=== PATIENT | male | born 1965 | race African-American/Black ===

== ENCOUNTER 2016-12-09 14:53 | Inpatient (IN) | payer SELFPAY ==
[2016-12-09] MEDS ORDERED: TORADOL 15 MG VIAL IVP PRN (16:04)
[2016-12-09] MEDS ORDERED: VANCOMYCIN HCL 1 GM VIAL IV SCH (17:00)
--- NOTE | 2016-12-09 17:50 | DR.H&P ---
H&P - History & Physical for Day of: H&P Date: 12/09/16 - Chief Complaint Chief Complaint: RIGHT ARM PAIN AND SWELLING - Allergies Allergies/Adverse Reactions: Allergies Allergy/AdvReac Type Severity Reaction Status Date / Time No Known Drug Allergy Allergy Verified 12/09/16 17:10 - History of Present Illness History of Present Illness: [address] FLOWER OFFICE AFTER PRESENTING WITH CO RIGHT UPPER EXTREMIY SWELLING AND PAIN. PT WAS TREATED ONE WEEK AGO WITH PO BACTRIM, INDOMETHICIN AND MEDROL DOSE CRISELDA WITHOUT IMPROVEMENT. PT HAS DIFFUSE SWELLING TO RIGHT ELBOW DOWN TO RIGHT HAND. PT DENIES ANY INSECT BITES OR INJURY. PLAN TO ADMIT, START IV ATBX, OBTAIN LABS AND ORTHO CONSULT - Past Medical History Past Medical History: Arthritis - Family History Family Medical History: Diabetes Mellitus, Hypertension - Social History Alcohol Use: None Drug Use: None - Medications Home Medications: NK [NK] 12/09/16 [History Confirmed 12/09/16] - Review of Systems Constitutional: No Symptoms Reported Eyes: No Symptoms Reported ENT: No Symptoms Reported Respiratory: No Symptoms Reported Cardiovascular: No Symptoms Reported Gastrointestinal: No Symptoms Reported Genitourinary: No Symptoms Reported Musculoskeletal: Arm Pain Skin: Other (REDNESS TO RUE) Neurological: Weakness (RIGHT HAND) - Physical Exam Vital Signs: Temperature 97.7 F Pulse Rate [Left Brachial] 73 Respiratory Rate 18 Blood Pressure [Left Arm] 167/93 O2 Sat by Pulse Oximetry 100 Oriented: Normal Eyes: Normal Ear: Normal Nose: Normal Throat: Normal Respiratory: Clear Throughout Cardiovascular: Normal : Normal Auscultation: Bowel Sounds: Normal Palpation: Normal Tenderness: Normal Skin: Red, Tender, Hot (RIGHT UPPER EXTREMITY) Musculoskeletal: Right, Elbow, Forearm, Wrist, Hand Speech Pattern: Clear, Appropriate - Assessment/Plan (1) Right upper limb pain Status: Acute Plan: ADMIT, ADMISSION LABS. CBC CMP BLOOD CULTURES. IV ATBX, US RUE, XRAY LEFT ELBOW. PAIN CONTROL, CONSULT ORTHO (2) Right arm cellulitis Status: Acute (3) Swelling of right upper extremity Status: Acute
[2016-12-09] MEDS ORDERED: NORVASC TAB 5 MG PO ONE (17:54)
[2016-12-09] MEDS ORDERED: AMBIEN PO PRN (17:54)
[2016-12-09 18:51] VITALS: BMI 31.7
[2016-12-09 19:38] LABS: BASOPHILS # (AUTO) 0.1 X10^3/uL (0.0-0.1); BASOPHILS % (AUTO) 0.9 % (0.2-1.0); EOSINOPHILS # (AUTO) 0.4 x10^3/uL (0.0-0.2); EOSINOPHILS % (AUTO) 2.2 % (0.9-2.9); HEMATOCRIT 39.2 % (42.0-54.0); HEMOGLOBIN 12.9 g/dL (13.5-18.0); LYMPHOCYTES # (AUTO) 2.3 X10^3/uL (1.3-2.9); LYMPHOCYTES % (AUTO) 14.3 % (21.0-51.0); MEAN CORPUSCULAR HEMOGLOBIN 29.4 pg (27.0-34.0); MEAN PLATELET VOLUME 10.4 fL (7.4-11.0); MONOCYTES # (AUTO) 1.1 x10^3/uL (0.3-0.8); MONOCYTES % (AUTO) 7.1 % (0.0-13.0); NEUTROPHILS # (AUTO) 12.3 x10^3/uL (2.2-4.8); NEUTROPHILS % (AUTO) 75.5 % (42.0-75.0); PLATELET COUNT 296 X10^3/uL (150.0-450.0); RED BLOOD COUNT 4.41 X10^6/uL (4.7-6.0); RED CELL DISTRIBUTION WIDTH 13.2 % (11.6-16.5); WHITE BLOOD COUNT 16.2 X10^3/uL (3.6-10.0)
[2016-12-09 19:52] LABS: ALANINE AMINOTRANSFERASE 25 Units/L (12-78); ALBUMIN 3.2 g/dL (3.4-5.0); ALKALINE PHOSPHATASE 92 Units/L (46-116); ASPARTATE AMINO TRANSFERASE 10 Units/L (15-37); BLOOD UREA NITROGEN 22 mg/dL (7-18); CARBON DIOXIDE 29.5 mmol/L (21-32); CHLORIDE 103 mmol/L (98-107); COR CA(FOR HYPOALB) 9.6 mg/dL (8.5-10.1); COR NA(FOR HYPERGLY) 141 mmol/L (136-145); CREATININE 1.26 mg/dL (0.70-1.30); GLUCOSE 116 mg/dL (65-99); SODIUM 141 mmol/L (136-145); TOTAL PROTEIN 8.3 g/dL (6.4-8.2); URIC ACID 5.9 mg/dL (3.5-7.2); eGFR BLACK RACES > 60 (>60); eGFR NON BLACK RACES > 60 (>60)
--- NOTE | 2016-12-09 20:18 | VAS ---
HISTORY: Extremity pain, swelling, and edema Study: Right upper extremity Doppler venous ultrasound. Comparison: none. TECHNIQUE: Multiple gomez scale and color flow Doppler images of the deep venous system were obtaine d of the upper extremity. FINDINGS: The deep venous system of the right upper extremity evaluated from the level of the internal jugular vein through the radial and ulnar veins. Normal color flow and augmentation can be observed. In a ddition, normal compression is seen throughout the upper extremity deep venous system. No soft tissu e hematoma is seen. IMPRESSION: 1. Negative examination for DVT. Reported By:
[2016-12-09 20:23] LABS: ERYTHROCYTE SEDIMENTATION RATE 70 MM/HOUR (0-15)
[2016-12-09] MEDS ORDERED: VANCOMYCIN HCL 500 MG VIAL 500 MG, VANCOMYCIN HCL 1 GM VIAL 1 GM in NS 250 ML IV 250 ML IV SCH (22:00)
[2016-12-09] MEDS ORDERED: VANCOMYCIN HCL 500 MG VIAL ONE (22:21)
[2016-12-09] MEDS ORDERED: VANCOMYCIN HCL 1 GM VIAL ONE (22:22)
[2016-12-09] MEDS ORDERED: NS 500 ML IV 500 ML IV ONE (22:23)
[2016-12-09] MEDS ORDERED: NS 250 ML IV 250 ML IV ONE (22:23)
[2016-12-09] MEDS: VANCOMYCIN HCL 500 MG VIAL 250 MG, VANCOMYCIN HCL 1 GM VIAL 1 GM in D5W 250 ML IV 250 ML IV SCH (22:39)
[2016-12-09] MEDS: NORCO 10/325 TAB PO PRN (22:44)
--- NOTE | 2016-12-10 04:26 | RAD ---
Right elbow, three views Indication: Right arm edema Findings: A true lateral view was not obtained. There is moderate diffuse joint space loss and bony irregularity of the elbow, in keeping with degenerative disease, possibly posttraumatic in etiology. No definite acute fracture or subluxation identified. There is soft tissue swelling about the elbow . No large joint effusion appreciated. 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 No definite acute skeletal abnormality ident ified. Diffuse soft tissue swelling about the elbow. Reported By:
[2016-12-10] MEDS ORDERED: VANCOMYCIN HCL 1 GM VIAL ONE ×2 (15:29→21:36)
[2016-12-10] MEDS ORDERED: VANCOMYCIN HCL 500 MG VIAL ONE ×2 (15:29→21:37)
[2016-12-10] MEDS ORDERED: D5W 250 ML IV 250 ML IV ONE ×2 (15:30→21:37)
--- NOTE | 2016-12-10 15:31 | PCM.PROG ---
Progress Note - Progress Note for Day of Date: 12/10/16 - Subjective Subjective: RIGHT ARM PAIN AND SWELLING. PT IS 51 BM ADMITTED ONE DAY AGO WITH RIGHT UPPER EXTREMITY CELLULITIS AND CURRENTLY ON VANCOMYCIN, CONSULTED DR BIANCHI - Past Medical Family Social History Past Med/Fam/Surg Hx: No changes since H&P Allergies: Allergies Shrimp Flavor Allergy (Verified 12/09/16 18:28) ANAPHALEXIS REACTION - Review of Systems ROS: No change since H&P - Vital Signs and I&O's Vital Signs: Temperature 98.1 F Pulse Rate [Left Brachial] 77 Respiratory Rate 18 Blood Pressure [Left Arm] 164/87 O2 Sat by Pulse Oximetry 96 Intake and Output: Intake & Output 12/08/16 12/09/16 12/10/16 12/11/16 11:59 11:59 11:59 11:59 Intake Total 960 360 Balance 960 360 - Physical Exam Oriented: Normal Eyes: Normal Ear: Normal Nose: Normal Throat: Normal Cardiovascular: Normal : Normal Auscultation: Bowel Sounds: Normal Tenderness: Normal Skin: Red, Tender, Hot (RIGHT UPPER EXTREMITY) Musculoskeletal: Right, Elbow, Forearm, Wrist, Hand Speech Pattern: Clear, Appropriate - Laboratory and Diagnostics Result Diagrams: 12/09/16 19:00 12/09/16 19:00 Labs: Laboratory WBC 16.2 X10^3/uL (3.6-10.0) H 12/09/16 19:00 RBC 4.41 X10^6/uL (4.7-6.0) L 12/09/16 19:00 Hgb 12.9 g/dL (13.5-18.0) L 12/09/16 19:00 Hct 39.2 % (42.0-54.0) L 12/09/16 19:00 MCV 89.0 fL (80.0-100.0) 12/09/16 19:00 MCH 29.4 pg (27.0-34.0) 12/09/16 19:00 MCHC 33.0 g/dL (33.0-35.0) 12/09/16 19:00 RDW 13.2 % (11.6-16.5) 12/09/16 19:00 Plt Count 296 X10^3/uL (150.0-450.0) 12/09/16 19:00 MPV 10.4 fL (7.4-11.0) 12/09/16 19:00 Neut % 75.5 % (42.0-75.0) H 12/09/16 19:00 Lymph % 14.3 % (21.0-51.0) L 12/09/16 19:00 [place] % 7.1 % (0.0-13.0) 12/09/16 19:00 Eos % 2.2 % (0.9-2.9) 12/09/16 19:00 Baso % 0.9 % (0.2-1.0) 12/09/16 19:00 Neut # 12.3 x10^3/uL (2.2-4.8) H 12/09/16 19:00 Lymph # 2.3 X10^3/uL (1.3-2.9) 12/09/16 19:00 [place] # 1.1 x10^3/uL (0.3-0.8) H 12/09/16 19:00 Eos # 0.4 x10^3/uL (0.0-0.2) H 12/09/16 19:00 Baso # 0.1 X10^3/uL (0.0-0.1) 12/09/16 19:00 Absolute Nucleated RBC 0.0 /100WBC 12/09/16 19:00 ESR 70 MM/HOUR (0-15) H 12/09/16 19:00 Sodium 141 mmol/L (136-145) 12/09/16 19:00 Corrected Sodium 141 mmol/L (136-145) 12/09/16 19:00 Potassium 4.3 mmol/L (3.5-5.1) 12/09/16 19:00 Chloride 103 mmol/L (98-107) 12/09/16 19:00 Carbon Dioxide 29.5 mmol/L (21-32) 12/09/16 19:00 BUN 22 mg/dL (7-18) H 12/09/16 19:00 Creatinine 1.26 mg/dL (0.70-1.30) 12/09/16 19:00 Est GFR (MDRD) Af Amer > 60 (>60) 12/09/16 19:00 Est GFR (MDRD) Non-Af > 60 (>60) 12/09/16 19:00 Glucose 116 mg/dL (65-99) H 12/09/16 19:00 Uric Acid 5.9 mg/dL (3.5-7.2) 12/09/16 19:00 Calcium 9.0 mg/dL (8.5-10.1) 12/09/16 19:00 Corrected Calcium 9.6 mg/dL (8.5-10.1) 12/09/16 19:00 Total Bilirubin 0.30 mg/dL (0.2-1.0) 12/09/16 19:00 AST 10 Units/L (15-37) L 12/09/16 19:00 ALT 25 Units/L (12-78) 12/09/16 19:00 Alkaline Phosphatase 92 Units/L (46-116) 12/09/16 19:00 C-Reactive Protein 99.30 mg/L (0-3.0) H 12/09/16 19:00 Total Protein 8.3 g/dL (6.4-8.2) H 12/09/16 19:00 Albumin 3.2 g/dL (3.4-5.0) L 12/09/16 19:00 Globulin 5.1 g/dL (2.5-4.5) H 12/09/16 19:00 Albumin/Globulin Ratio 0.6 Ratio (1.1-2.1) L 12/09/16 19:00 - Plan (1) Right upper limb pain Status: Acute Plan: REPEAT AM LABS. CBC CMP BLOOD CULTURES ON ADMISSION, URIC ACID, STAR AND RA FACTOR. IV ATBX, US RUE, XRAY LEFT ELBOW. PAIN CONTROL, CONSULT ORTHO (2) Right arm cellulitis Status: Acute (3) Swelling of right upper extremity Status: Acute
[2016-12-10] MEDS: VANCOMYCIN HCL 500 MG VIAL 250 MG, VANCOMYCIN HCL 1 GM VIAL 1 GM in D5W 250 ML IV 250 ML IV SCH (15:38)
--- NOTE | 2016-12-10 15:38 | DR.CONSULT ---
Consult - Consultation for Day of: Date: 12/10/16 (thanks for the consult) - Chief Complaint Chief Complaint: patient admitted to the hospital for a right upper limb cellulitis. Patient has been on IV antibiotics. Patient's reports that he's been improving. He still was noted to. A history and is positive for right elbow pain in the past. No history of trauma or any bite to the right upper limb. Patient reports 2 weeks ago he had swelling which got worse as he kept working. There is redness noted with that. Patient was admitted to enter the hospital for IV antibiotics. For the last 2 days he is doing well. - Allergies Allergies/Adverse Reactions: Allergies Allergy/AdvReac Type Severity Reaction Status Date / Time Shrimp Flavor Allergy ANAPHALEXIS Verified 12/09/16 18:28 REACTION - Past Medical History Past Medical History: Arthritis - Family History Family Medical History: Diabetes Mellitus - Social History Does patient currently use any type of tobacco product: No Have you used tobacco products in the last 12 months: No Type of Tobacco Use: None Does any household member use tobacco: No Alcohol Use: None Drug Use: None - Medications Home Medications: NK [NK] 12/09/16 [History Confirmed 12/09/16] - Physical Exam Vital Signs: Temperature 98.1 F Pulse Rate [Left Brachial] 77 Respiratory Rate 18 Blood Pressure [Left Arm] 164/87 O2 Sat by Pulse Oximetry 96 Musculoskeletal: Right, Forearm (the swelling is diffuse noted on the right forearm involving the elbow and the wrist and hand. Wrinkles are seen. Not much of redness is appreciated. Induration is not appreciated. R [place] softness or signs of abscesses noted at this time. Patient's elbow and wrist motion is restricted this time due to the pain. Distal neurovascular exam is normal.) - Plan Plan: x-rays of the right elbow or positive for a degenerative osteoarthritic changes were noted. Patient doesn't remember any specific symptoms relating to his right elbow. He reports he had occasional pain in the right elbow. diagnosis cellulitis seem to be responding to the IV antibiotic. There is no need for surgical intervention as it is at this time. We will continue with regular labs. In case he becomes worse we will reexamine him and maybe need further imaging.
[2016-12-10 16:39] LABS: BASOPHILS # (AUTO) 0.1 X10^3/uL (0.0-0.1); BASOPHILS % (AUTO) 0.8 % (0.2-1.0); EOSINOPHILS # (AUTO) 0.1 x10^3/uL (0.0-0.2); EOSINOPHILS % (AUTO) 0.9 % (0.9-2.9); HEMATOCRIT 42.9 % (42.0-54.0); HEMOGLOBIN 14.3 g/dL (13.5-18.0); LYMPHOCYTES # (AUTO) 1.8 X10^3/uL (1.3-2.9); LYMPHOCYTES % (AUTO) 12.7 % (21.0-51.0); MEAN CORPUSCULAR HEMOGLOBIN 29.8 pg (27.0-34.0); MEAN CORPUSCULAR HGB CONC 33.4 g/dL (33.0-35.0); MEAN CORPUSCULAR VOLUME 89.4 fL (80.0-100.0); MEAN PLATELET VOLUME 10.1 fL (7.4-11.0); MONOCYTES # (AUTO) 0.9 x10^3/uL (0.3-0.8); MONOCYTES % (AUTO) 6.1 % (0.0-13.0); NEUTROPHILS # (AUTO) 11.4 x10^3/uL (2.2-4.8); NEUTROPHILS % (AUTO) 79.5 % (42.0-75.0); PLATELET COUNT 329 X10^3/uL (150.0-450.0); RED CELL DISTRIBUTION WIDTH 12.9 % (11.6-16.5); WHITE BLOOD COUNT 14.3 X10^3/uL (3.6-10.0)
[2016-12-10 16:49] LABS: ALANINE AMINOTRANSFERASE 24 Units/L (12-78); ALBUMIN 3.3 g/dL (3.4-5.0); ALKALINE PHOSPHATASE 96 Units/L (46-116); ASPARTATE AMINO TRANSFERASE 8 Units/L (15-37); BLOOD UREA NITROGEN 16 mg/dL (7-18); CALCIUM 9.5 mg/dL (8.5-10.1); CARBON DIOXIDE 30.6 mmol/L (21-32); CHLORIDE 103 mmol/L (98-107); COR CA(FOR HYPOALB) 10.1 mg/dL (8.5-10.1); CREATININE 1.28 mg/dL (0.70-1.30); GLUCOSE 94 mg/dL (65-99); SODIUM 141 mmol/L (136-145); TOTAL PROTEIN 9.1 g/dL (6.4-8.2); eGFR BLACK RACES > 60 (>60); eGFR NON BLACK RACES > 60 (>60)
[2016-12-10 17:12] LABS: HEMOGLOBIN A1C 5.3 % (4.5-6.2); RHEUMATOID FACTOR NEGATIVE (NEGATIVE)
--- NOTE | 2016-12-10 18:11 | CT ---
CT right humerus without contrast Indication: Right arm swelling with pain in the elbow and wrist. Technique: Helical images from the shoulder to the elbow joint of the right humerus, without contras t. Coronal and sagittal reformats provided. Comparison: December 09, 2016 of the radiograph. December 09, [address] right fore arm from the same day reviewed. Findings: Elbow joint degenerative change at the radio capitellar and trochlear joints noted. Osteoc hondral body seen posteriorly. The humerus is intact. Mild glenohumeral and acromioclavicular joint degenerative change partially visualized. Muscles about the shoulder girdle appear normal. Neurovasc ular structures are intact. No large right shoulder effusion suspected, within the limits of CT. The re is soft tissue swelling about the elbow with enthesopathy at the triceps insertion on the olecran on. Soft tissue swelling is mostly dorsal. Anterior compartment appears relatively normal. Joint eff usion is present. The biceps and brachialis tendons appear grossly intact. No aggressive periosteal reaction seen. 2 osteochondral bodies are seen in the posterior joint, with a small osteochondral body suspected in the anterior joint space see sagittal image 21 of series 9. The largest body posteriorly measures 1 .1 cm on sagittal image 17. Joint effusion is present. Impression: 1. Intact humerus without acute osseous abnormality. 2. Mild right shoulder degenerative changes. 3. Moderate elbow joint degenerative change with effusion and osteochondral bodies within the joint. There is also swelling about the elbow, particularly dorsally. Enthesopathy is seen at the triceps tendon which appears relatively intact for CT technique. Tendinosis or partial tear is not completel y excluded. Correlate clinically for extensor mechanism pain weakness at the elbow. Reported By:
--- NOTE | 2016-12-10 18:19 | CT ---
Right forearm CT without contrast Indication: Soft tissue swelling concern for cellulitis Comparison: None available Findings: Please see separate CT examination for description of degenerative findings within the elb ow joint. There is mild osteopenia within the radius and ulna. There are multiple round lucencies wi thin the subcortical bone of the triquetrum, lunate, scaphoid, capitate, hamate comment trapezial in and along the volar aspect of the distal radius and at the tip of the ulnar styloid process. Small amount of fluid is no within the radiocarpal joint. No acute fracture or malalignment. There is mild soft tissue swelling within the hand and distal forearm. No localizing fluid collection or gas. No evidence of factual edema. Impression: 1.No acute fracture or dislocation within the right forearm and wrist. 2. Mild generalized soft tissue swelling within distal forearm and wrist is nonspecific, no definite localizing fluid collection or abscess. No soft tissue gas or discrete fascial edema. 3. Multiple subcortical lucencies throughout the carpus, distal radius and ulna are indeterminate, t hese may represent sequela chronic inflammatory arthropathy potentially a seronegative arthropathy o r rheumatoid arthritis in the appropriate clinical setting, additionally these may also be sequela o f osteoarthrosis; however lack of significant joint space loss, sclerosis and osteophyte formation m akes this a less likely consideration. Small wrist joint effusion. Reported By:
[2016-12-10] MEDS ORDERED: NS 500 ML IV 500 ML IV ONE (20:31)
[2016-12-10] MEDS: NORCO 10/325 TAB PO PRN (20:58)
[2016-12-10] MEDS ORDERED: VANCOMYCIN HCL 500 MG VIAL 250 MG, VANCOMYCIN HCL 1 GM VIAL 1 GM in D5W 250 ML IV 250 ML IV SCH (22:00)
[2016-12-11 06:44] LABS: BASOPHILS # (AUTO) 0.1 X10^3/uL (0.0-0.1); BASOPHILS % (AUTO) 0.7 % (0.2-1.0); EOSINOPHILS # (AUTO) 0.2 x10^3/uL (0.0-0.2); EOSINOPHILS % (AUTO) 1.8 % (0.9-2.9); HEMATOCRIT 38.4 % (42.0-54.0); LYMPHOCYTES # (AUTO) 2.6 X10^3/uL (1.3-2.9); LYMPHOCYTES % (AUTO) 24.3 % (21.0-51.0); MEAN CORPUSCULAR HEMOGLOBIN 30.2 pg (27.0-34.0); MEAN CORPUSCULAR HGB CONC 33.9 g/dL (33.0-35.0); MEAN CORPUSCULAR VOLUME 89.2 fL (80.0-100.0); MEAN PLATELET VOLUME 10.1 fL (7.4-11.0); MONOCYTES # (AUTO) 0.8 x10^3/uL (0.3-0.8); MONOCYTES % (AUTO) 7.2 % (0.0-13.0); PLATELET COUNT 328 X10^3/uL (150.0-450.0); RED CELL DISTRIBUTION WIDTH 12.9 % (11.6-16.5); WHITE BLOOD COUNT 10.6 X10^3/uL (3.6-10.0)
[2016-12-11 06:54] LABS: ALANINE AMINOTRANSFERASE 24 Units/L (12-78); ALBUMIN 2.7 g/dL (3.4-5.0); ALKALINE PHOSPHATASE 81 Units/L (46-116); ASPARTATE AMINO TRANSFERASE 9 Units/L (15-37); BLOOD UREA NITROGEN 17 mg/dL (7-18); CALCIUM 8.9 mg/dL (8.5-10.1); CARBON DIOXIDE 25.6 mmol/L (21-32); CHLORIDE 102 mmol/L (98-107); COR CA(FOR HYPOALB) 9.9 mg/dL (8.5-10.1); CREATININE 1.22 mg/dL (0.70-1.30); GLUCOSE 102 mg/dL (65-99); SODIUM 139 mmol/L (136-145); TOTAL PROTEIN 7.9 g/dL (6.4-8.2); eGFR BLACK RACES > 60 (>60); eGFR NON BLACK RACES > 60 (>60)
[2016-12-11 07:20] LABS: ERYTHROCYTE SEDIMENTATION RATE 68 MM/HOUR (0-15)
[2016-12-11 10:48] VITALS: BP 149/91
--- NOTE | 2016-12-11 13:04 | PCM.DCPLAN ---
Discharge Summary - Admission Date Date of Admission: 12/09/16 - Discharge Date Discharge Date: 12/11/16 - Admission Diagnoses (1) Right upper limb pain Status: Acute (2) Right arm cellulitis Status: Acute (3) Swelling of right upper extremity Status: Acute - Discharge Diagnoses Discharge Diagnosis: same as admission - Discharge Medications Discharge Medications: Amlodipine Besylate [NORVASC 5 MG *] 5 mg PO DAILY #30 tab 12/11/16 [Rx] Sulfamethoxazole-Trimethoprim [BACTRIM DS TAB 800/160 MG *] 1 tab PO BID #20 tab 12/11/16 [Rx] - Hospital Course Vital Signs: Temperature 97.8 F Pulse Rate [Left Brachial] 54 Respiratory Rate 18 Blood Pressure [Left Arm] 149/91 O2 Sat by Pulse Oximetry 94 Latest Lab Results: Laboratory Last Values WBC 10.6 X10^3/uL (3.6-10.0) H 12/11/16 04:20 RBC 4.30 X10^6/uL (4.7-6.0) L 12/11/16 04:20 Hgb 13.0 g/dL (13.5-18.0) L 12/11/16 04:20 Hct 38.4 % (42.0-54.0) L 12/11/16 04:20 MCV 89.2 fL (80.0-100.0) 12/11/16 04:20 MCH 30.2 pg (27.0-34.0) 12/11/16 04:20 MCHC 33.9 g/dL (33.0-35.0) 12/11/16 04:20 RDW 12.9 % (11.6-16.5) 12/11/16 04:20 Plt Count 328 X10^3/uL (150.0-450.0) 12/11/16 04:20 MPV 10.1 fL (7.4-11.0) 12/11/16 04:20 Neut % 66.0 % (42.0-75.0) 12/11/16 04:20 Lymph % 24.3 % (21.0-51.0) 12/11/16 04:20 [place] % 7.2 % (0.0-13.0) 12/11/16 04:20 Eos % 1.8 % (0.9-2.9) 12/11/16 04:20 Baso % 0.7 % (0.2-1.0) 12/11/16 04:20 Neut # 7.0 x10^3/uL (2.2-4.8) H 12/11/16 04:20 Lymph # 2.6 X10^3/uL (1.3-2.9) 12/11/16 04:20 [place] # 0.8 x10^3/uL (0.3-0.8) 12/11/16 04:20 Eos # 0.2 x10^3/uL (0.0-0.2) 12/11/16 04:20 Baso # 0.1 X10^3/uL (0.0-0.1) 12/11/16 04:20 Absolute Nucleated RBC 0.1 /100WBC 12/11/16 04:20 ESR 68 MM/HOUR (0-15) H 12/11/16 04:20 Sodium 139 mmol/L (136-145) 12/11/16 04:20 Corrected Sodium TNP 12/11/16 04:20 Potassium 4.4 mmol/L (3.5-5.1) 12/11/16 04:20 Chloride 102 mmol/L (98-107) 12/11/16 04:20 Carbon Dioxide 25.6 mmol/L (21-32) 12/11/16 04:20 BUN 17 mg/dL (7-18) 12/11/16 04:20 Creatinine 1.22 mg/dL (0.70-1.30) 12/11/16 04:20 Est GFR (MDRD) Af Amer > 60 (>60) 12/11/16 04:20 Est GFR (MDRD) Non-Af > 60 (>60) 12/11/16 04:20 Glucose 102 mg/dL (65-99) H 12/11/16 04:20 Hemoglobin A1c 5.3 % (4.5-6.2) 12/10/16 15:55 Uric Acid 5.9 mg/dL (3.5-7.2) 12/09/16 19:00 Calcium 8.9 mg/dL (8.5-10.1) 12/11/16 04:20 Corrected Calcium 9.9 mg/dL (8.5-10.1) 12/11/16 04:20 Total Bilirubin 0.30 mg/dL (0.2-1.0) 12/11/16 04:20 AST 9 Units/L (15-37) L 12/11/16 04:20 ALT 24 Units/L (12-78) 12/11/16 04:20 Alkaline Phosphatase 81 Units/L (46-116) 12/11/16 04:20 C-Reactive Protein 52.50 mg/L (0-3.0) H 12/11/16 04:20 Total Protein 7.9 g/dL (6.4-8.2) 12/11/16 04:20 Albumin 2.7 g/dL (3.4-5.0) L 12/11/16 04:20 Globulin 5.2 g/dL (2.5-4.5) H 12/11/16 04:20 Albumin/Globulin Ratio 0.5 Ratio (1.1-2.1) L 12/11/16 04:20 Random Vancomycin 10.8 ug/mL 12/11/16 10:35 Rheumatoid Factor Negative (NEGATIVE) 12/10/16 15:55 Hospital Course: patient is a 51-year-old black male who was a direct admit from Dr. Villela's office after failing to improve with outpatient therapy for right upper extremity cellulitis. on admission patient's white count was 16.2, CRP was 99.3, sedimentation rate 70. patient had ultrasound of his right upper extremity negative for DVT, x-ray of the right upper extremity revealed diffuse degenerative arthritis to his elbow and localized effusion and soft tissue edema. Patient was started on vancomycin on admission and had IV pain medication. Dr. Bob and I'll consult with patient for orthopedic evaluation. On day 2 patient's white count had improved CRP and sedimentation rate improving. Patient had significant decrease of swelling to the right upper extremity after 24 hours of antibiotics. Patient had a CT of his right upper extremity consistent with findings from x-ray report. Patient was significantly improved this morning patient was ready to go home. Patient's CRP was down to 52.8 patient's white count improved. Patient was placed in an OCL to the right upper extremity to stabilize L5. Patient was instructed to resume home meds given a prescription for Bactrim DS by mouth twice a day for 10 days, tramadol 50 mg for pain. Patient was also started on Norvasc 5 mg for control of hypertension while inpatient. Patient was discharged home with a prescription for Norvasc 5. Patient was instructed to follow-up with Dr. Villela in 1 week for further evaluation and follow-up with Dr. Bob and off on Wednesday in the office. Patient verbalized understanding and was discharged home with family - Discharge Plan Disposition: HOME, SELF-CARE Condition: Stable Prescriptions: Amlodipine Besylate [NORVASC 5 MG *] 5 mg PO DAILY #30 tab Sulfamethoxazole-Trimethoprim [BACTRIM DS TAB 800/160 MG *] 1 tab PO BID #20 tab - Follow ups/Referrals Follow ups/Referrals: LAYLA ZAVALA [STAFF PHYSICIAN] - 12/16/16 12:45 pm AGUSTIN DUNNE [Nurse Practitioner] - 12/22/16 2:30 pm - Instructions Instructions: Tramadol tablets, Cellulitis, [id number], Amlodipine; Benazepril capsules, Sulfamethoxazole; Trimethoprim, SMX-TMP tablets Additional Instructions: olc to rue pt to see dr zavala next wednesday in see office for follow up continue home meds bactrim ds bid, tramadol for pain control, limit activity rest Forms: Patient Portal
[2016-12-14 07:39] LABS: ANTI-NUCLEAR ANTIBODY TEST None Detected (None Detected)
== END 2016-12-11 11:30 | disposition home or self-care (01) | DRG 603 ==
LOC: MED/SURG 14:53
PROVIDERS: ADMIT Internal Medicine; ATTEND Internal Medicine
DX: L03.113 Cellulitis of right upper limb (principal); M79.621 Pain in right upper arm; M79.89 Other specified soft tissue disorders; E11.65 Type 2 diabetes mellitus with hyperglycemia; I10 Essential (primary) hypertension
CPT/HCPCS: 36415; 73070; 73200; 80053; 80202; 83036; 84550; 85025; 85652; 86140; 86308; 86430; 87040; 93971; A4222; J3370